=== PATIENT | female | born 1970 | race Caucasian/White ===

== ENCOUNTER 2024-02-25 06:18 | Day surgery (SDC) | payer OTHER, SELFPAY ==
[2024-02-21 13:37] VITALS: BMI 20.3
[2024-02-25 12:15] VITALS: BP 130/78
[2024-02-25] MEDS: TYLENOL 1000 MG PO (12:36)
[2024-02-25 14:30] VITALS: BP 109/63
[2024-02-25 14:45] VITALS: BP 103/63
[2024-02-25 15:00] VITALS: BP 119/69
[2024-02-25 15:15] VITALS: BP 128/72
== END 2024-02-25 15:35 | disposition home or self-care (01) ==
LOC: SDS 06:18
PROVIDERS: ATTENDING PHYSICIAN Orthopaedic Surgery Hand Surgery; FAMILY PHYSICIAN Internal Medicine
DX: M65.311 Trigger thumb, right thumb (principal); M65.841 Other synovitis and tenosynovitis, right hand; M67.449 Ganglion, unspecified hand; M18.11 Unilateral primary osteoarthritis of first carpometacarpal joint, right hand
CPT/HCPCS: 26055; 26160; 88304; 93005

== ENCOUNTER 2025-10-12 15:16 | Outpatient (RCR) | payer OTHER, SELFPAY | END 2025-10-12 23:59 | disposition home or self-care (01) | LOC: ROT 15:16 | PROVIDERS: ATTENDING PHYSICIAN Orthopaedic Surgery Hand Surgery; FAMILY PHYSICIAN Internal Medicine | DX: Z47.89 Encounter for other orthopedic aftercare (principal); M25.531 Pain in right wrist; Z73.6 Limitation of activities due to disability | CPT/HCPCS: 97760 ==